=== PATIENT | male | born 1990 | race African-American/Black ===

== ENCOUNTER 2017-12-27 08:30 | Inpatient (IN) | payer OTHER ==
[~2017-12-27] VITALS: Ht 61 cm; Wt 5.0 kg
== END 2017-12-30 18:04 | disposition left against medical advice (07) | DRG 638 ==
LOC: ER 08:30 → ICU 11:57 → ICU-2 11:57 → ICU 20:18
PROC: 4A033R1 Measurement of Arterial Saturation, Peripheral, Percutaneous Approach (ICD-10-PCS; principal; 2017-12-27)
DX: E10.10 Type 1 diabetes mellitus with ketoacidosis without coma (principal); F11.23 Opioid dependence with withdrawal; R45.851 Suicidal ideations; B37.49 Other urogenital candidiasis; E86.0 Dehydration; D72.828 Other elevated white blood cell count